=== PATIENT | male | born 1960 | race Caucasian/White ===

== ENCOUNTER 2019-10-10 17:46 | Emergency (ER) | payer OTHER ==
[2019-10-10] MEDS ORDERED: DIPH/PERTUSS(ACELL)/TETANUS VAC/PF 0.5 ML SYR (>=10YO) IM ONE (18:58)
--- NOTE | 2019-10-10 18:59 | ER Document Report ---
ED Medical Screen (RME) - General Chief Complaint: Foot Injury Stated Complaint: FALL/LEFT FOOT,ANKLE PAIN Time Seen by Provider: 10/10/19 18:52 Primary Care Provider: GENARO BAILEY MD [Primary Care Provider] - Follow up as needed Mode of Arrival: Ambulatory Information source: Patient Notes: Patient states that he slipped on allergy 2 days ago while [place] injuring the left great toe. Patient states that he got a lot of algae shoved underneath the toenail. Patient states that he tried to trim the nail and pull the algae out from underneath the nail but the toe has been progressively looking infected. Patient denies any fever. I have greeted and performed a rapid initial assessment of this patient. A comprehensive ED assessment and evaluation of the patient, analysis of test results and completion of the medical decision making process will be conducted by additional ED providers. - Related Data Allergies/Adverse Reactions: No Known Allergies Allergy (Verified 10/10/19 18:52) Past Medical History - Social History Frequency of alcohol use: None Drug Abuse: None Physical Exam - Vital signs Vitals: Temp Pulse Resp BP Pulse Ox 98.9 F 63 18 148/81 H 98 10/10/19 17:53 10/10/19 17:53 10/10/19 17:53 10/10/19 17:53 10/10/19 17:53 - General Notes: Left great toe tenderness with swelling and erythema surrounding nail bed, patient with discoloration underneath the nailbed Course - Vital Signs Vital signs: Temp Pulse Resp BP Pulse Ox 98.9 F 63 18 148/81 H 98 10/10/19 17:53 10/10/19 17:53 10/10/19 17:53 10/10/19 17:53 10/10/19 17:53 Doctor's Discharge - Discharge Referrals: GENARO BAILEY MD [Primary Care Provider] - Follow up as needed
[2019-10-10 19:18] LABS: ABSOLUTE BASOPHILS # (AUTO) 0.1 10^3/uL (0.0-0.2); ABSOLUTE EOSINOPHILS # (AUTO) 0.3 10^3/uL (0.0-0.6); ABSOLUTE LYMPHOCYTES (AUTO) 1.8 10^3/uL (0.5-4.7); ABSOLUTE MONOCYTES (AUTO) 0.7 10^3/uL (0.1-1.4); ABSOLUTE NEUT (AUTO) 5.9 10^3/uL (1.7-8.2); BASOPHILS % (AUTO) 0.7 % (0-2); EOSINOPHILS % (AUTO) 2.9 % (0-6); HEMATOCRIT 42.6 % (37.9-51.0); LYMPHOCYTES % (AUTO) 20.5 % (13-45); MEAN CORPUSCULAR HEMOGLOBIN 32.9 pg (27.0-33.4); MEAN CORPUSCULAR HGB CONC 35.3 g/dL (32.0-36.0); MEAN CORPUSCULAR VOLUME 93 fl (80-97); MONOCYTES % (AUTO) 7.8 % (3-13); PLATELET COUNT 215 10^3/uL (150-450); RED BLOOD COUNT 4.57 10^6/uL (4.35-5.55); RED CELL DISTRIBUTION WIDTH 12.5 % (11.5-14.0); SEGMENTED NEUTROPHILS % (AUTO) 68.1 % (42-78); TOTAL CELLS COUNTED % (AUTO) 100 %; WHITE BLOOD COUNT 8.7 10^3/uL (4.0-10.5)
--- NOTE | 2019-10-10 19:29 | RADIOLOGY REPORT (SQ) ---
EXAM DESCRIPTION: TOE LEFT IMAGES COMPLETED DATE/TIME: 10/10/2019 7:20 pm REASON FOR STUDY: fall, toe injury COMPARISON: None. NUMBER OF VIEWS: Three views. TECHNIQUE: AP, lateral, and oblique images acquired of the left first toe. LIMITATIONS: None. FINDINGS: MINERALIZATION: Normal. BONES: No acute fracture or dislocation. No worrisome bone lesions. JOINTS: No effusions. SOFT TISSUES: No soft tissue swelling. No foreign body. OTHER: No other significant finding. IMPRESSION: NEGATIVE STUDY OF THE LEFT TOE. NO RADIOGRAPHIC EVIDENCE OF ACUTE INJURY. COMMENT: SITE OF TRAUMA/COMPLAINT MARKED/STAMP COMPLETED: Yes TECHNICAL DOCUMENTATION: JOB ID: [id number] 2010 [employer]- All Rights Reserved Reading location - IP/workstation name: [email or web address]
[2019-10-10 19:40] LABS: ANION GAP 7 (5-19); BLOOD UREA NITROGEN 19 mg/dL (7-20); CALCIUM 9.2 mg/dL (8.4-10.2); CARBON DIOXIDE 28 mmol/L (22-30); CHLORIDE 105 mmol/L (98-107); GLUCOSE 96 mg/dL (75-110); POTASSIUM 4.4 mmol/L (3.6-5.0)
[2019-10-10] MEDS ORDERED: DOXYCYCLINE HYCLATE 100 MG TABLET PO ONE (23:50)
[2019-10-10] MEDS ORDERED: CEPHALEXIN 500 MG CAPSULE PO ONE (23:50)
--- NOTE | 2019-10-11 00:01 | ER Document Report ---
ED General - General Chief Complaint: Foot Injury Stated Complaint: FALL/LEFT FOOT,ANKLE PAIN Time Seen by Provider: 10/10/19 18:52 Primary Care Provider: GENARO BAILEY MD [Primary Care Provider] - Follow up as needed Mode of Arrival: Ambulatory - [facility] Notes: Patient is a 59-year-old male with a history of hypertension who presents to the emergency department for evaluation of left great toe pain. He was in the river on Thursday when he stubbed his toe. He states he saw some allergy get underneath his toenail. He states that it seemed to hurt somewhat on Thursday, but it actually improved. He saw his primary care provider this morning, and in fact it had stopped bothering him, so he did not even mention it. He states that throughout the day it seemed to get redder and more swollen, so he presents to the ER for further evaluation. No fevers or chills. No nausea or vomiting. He is unsure as to what his last tetanus shot was. He states that he has a throbbing pain in his toe that he rates a 2 out of 5. - Related Data Allergies/Adverse Reactions: No Known Allergies Allergy (Verified 10/10/19 18:52) Home Medications: Lisinopril Past Medical History - General Information source: Patient - Social History Smoking Status: Never Smoker Frequency of alcohol use: None Drug Abuse: None Family History: DM, Malignancy - Past Medical History Cardiac Medical History: Reports: Hx Hypertension Review of Systems - Review of Systems Constitutional: No symptoms reported EENT: No symptoms reported Cardiovascular: No symptoms reported Respiratory: No symptoms reported Gastrointestinal: No symptoms reported Genitourinary: No symptoms reported Musculoskeletal: See HPI Skin: See HPI Neurological/Psychological: No symptoms reported Physical Exam - Vital signs Vitals: Temp Pulse Resp BP Pulse Ox 98.9 F 63 18 148/81 H 98 10/10/19 17:53 10/10/19 17:53 10/10/19 17:53 10/10/19 17:53 10/10/19 17:53 - Notes Notes: Vital signs reviewed, please refer to chart. Head is normocephalic, atraumatic. Pupils equal round, reactive to light. Neck is supple without meningismus. Heart is regular rate and rhythm. Lungs are clear to auscultation bilaterally. Abdomen is soft, nontender, normoactive bowel sounds throughout. Extremities without cyanosis, clubbing. Posterior calves are nontender. Examination of the left great toe yields a moderate amount of erythema and edema. There is a small amount of purulent appearing material, and the superior end of the nail, lateral aspect, and may be tracking underneath the nailbed itself. There is a split down the middle of the nail, but the nail is well adhered to the nailbed at this time. There is lymphangitic streaking that traverses up the foot, stops at the level of the talus. Course - Re-evaluation Re-evalutation: 10/11/19 00:05 Patient presents to the emergency department for evaluation. He had laboratory investigations and imaging as ordered through triage. His labs are unremarkable. His images are unremarkable. I suspect the patient has a signifi cant cellulitis and lymphangitis. His nail is well adhered at this point, I do not see any reason to further traumatize the area by removing it, but do think a referral on to podiatry is appropriate. Patient is given doxycycline and Keflex here. We will write him prescriptions for the same. He is told to keep the area clean with soap and water, soak twice daily, and return to the ER with worsening or new concerning symptoms of any sort. - Vital Signs Vital signs: Temp Pulse Resp BP Pulse Ox 98.3 F 64 18 134/73 H 100 10/10/19 22:08 10/10/19 22:08 10/10/19 17:53 10/10/19 22:08 10/10/19 22:08 - Laboratory Result Diagrams: 10/10/19 19:06 10/10/19 19:06 - Diagnostic Test Radiology reviewed: Reports reviewed Radiology results interpreted by me: 10/11/19 00:05 Toe X-Ray 10/10/19 18:57 IMPRESSION: NEGATIVE STUDY OF THE LEFT TOE. NO RADIOGRAPHIC EVIDENCE OF ACUTE INJURY. Discharge - Discharge Clinical Impression: Cellulitis with lymphangitis Condition: Stable Disposition: HOME, SELF-CARE Instructions: Cellulitis ([facility]) Additional Instructions: Keep foot clean with soap and water. Soak at least twice daily in clean lukewarm water. Take antibiotics as prescribed. Follow-up with podiatry on the next several days. If the redness increases, swelling increases, but you develop fevers, vomiting, or any other new or concerning symptoms, please return immediately to the emergency department for reevaluation. Referrals: GENARO BAILEY MD [Primary Care Provider] - Follow up as needed FAIZA WEBER DPM [ACTIVE STAFF] - Follow up as needed
[2019-10-11] MEDS ORDERED: DIPH/PERTUSS(ACELL)/TETANUS VAC/PF 0.5 ML SYR (>=10YO) IM ONE (00:45)
[2019-10-11 00:49] VITALS: BP 146/80
== END 2019-10-11 00:50 | disposition home or self-care (01) ==
LOC: ER 17:46
DX: L03.90 Cellulitis, unspecified (principal); L60.3 Nail dystrophy; I10 Essential (primary) hypertension; Z79.899 Other long term (current) drug therapy; Z23 Encounter for immunization
CPT/HCPCS: 36415; 80048; 85025; 90471; 90715; 99284